=== PATIENT | male | born 1970 | race Caucasian/White ===

== ENCOUNTER → 2019-09-14 | Outpatient (CLI) | payer BC | LOC: COL.RAD 08:00 | DX: E04.2 Nontoxic multinodular goiter (principal) ==

== ENCOUNTER 2020-07-06 12:36 | Day surgery (SDC) | payer BC ==
[~2020-07-06] VITALS: Ht 180.3 cm; Wt 121.2 kg
[2020-07-06] VITALS (10 sets, daily range): BP systolic 127–156; BP diastolic 85–98; PULSE 58–75; TEMP 98.2
[~2020-07-06 12:36] MED LIST: CARDIZEM CD360 MG PO; CYMBALTA 60MG60 MG PO; LAMICTAL 25MG T25 MG PO; LIPITOR 40MG TA40 MG PO; LITHOBID 3300 MG/TAB PO
[2020-07-06] MEDS ORDERED: FERRO-TIME325 MG PO (13:08)
[2020-07-06] MEDS ORDERED: FOLIC ACID 11 MG/TA1 PO (13:08)
[2020-07-06] MEDS ORDERED: B-121000 MCG PO (13:08)
[2020-07-06] MEDS ORDERED: SYNTHROID0.2 MG/TAB PO (13:11)
[2020-07-06] MEDS ORDERED: MULTIPLE VITAMI1 TA5 PO (13:12)
[2020-07-06 13:42] LABS: HEMATOCRIT 44.2 % (42.0-52.0); HEMOGLOBIN 15.2 g/dl (13.5-18.0); MEAN CELL VOLUME 96 fl (80.0-100.0); MEAN CORPUSCULAR HEMOGLOBIN 33 pg (27.0-31.0); MEAN CORPUSCULAR HGB CONC 34 g/dl (33.0-37.0); MEAN PLATELET VOLUME 9.6 fl (7.4-10.4); PLATELET COUNT 292 K/mm3 (130-400); REDCELL DISTRIBUTION WIDTH-CV 13.3 % (11.5-14.5)
[2020-07-06 13:50] LABS: INR 0.9 (0.8-3.0); PROTHROMBIN TIME 10.4 SECONDS (9.7-12.8)
[2020-07-06 13:53] LABS: CALCIUM 10.5 mg/dL (8.4-10.2); CREATININE, serum 1.61 (0.66-1.25); PARTIAL THROMBOPLASTIN TIME 34.5 SECONDS (26.0-37.0); POTASSIUM 4.8 mmol/L (3.4-5.0)
--- NOTE | 2020-07-06 14:16 | NUR ---
SEE MERGE FOR ALL MEDICATION ADMINISTRATION TIMES AND INTRA AND POST SEDATION ASSESSMENTS
--- NOTE | 2020-07-06 18:00 | NUR ---
PT DID WELL DURING HIS RECOVERY, REMAINED IN SR/SB THROUGHOUT. TR BAND WAS DEFLATED WITH NO PROBLEM STARTING AT 1700, AND SITE WAS DRESSED WITH BANDAID, FOLDED 2X2 AND COBAN. CMS REMAINED INTACT DISTAL. PT HAS EATEN DINNER, AND HAS BEEN UP IN ROOM WITH STEADY GAIT. i REVIEWED DC AND FU INSTRUCTIONS WITH PT AND WHO DENIED ANY QUESTIONS. IV WAS DC'D WITH CATH INTACT. DRESSING APPLIED. TO EXIT VIA WHEELCHAIR.
== END 2020-07-06 20:51 | disposition home or self-care (01) ==
LOC: COL.CAR 12:36
PROVIDERS: Internal Medicine Interventional Cardiology
DX: I25.10 Atherosclerotic heart disease of native coronary artery without angina pectoris (principal); R94.39 Abnormal result of other cardiovascular function study; R06.02 Shortness of breath; I10 Essential (primary) hypertension; Z79.890 Hormone replacement therapy; Z20.822 Contact with and (suspected) exposure to COVID-19; Z79.899 Other long term (current) drug therapy; Z88.8 Allergy status to other drugs, medicaments and biological substances; Z88.6 Allergy status to analgesic agent
CPT/HCPCS: C1769; J1644; J2250; J3010

== ENCOUNTER 2020-07-26 15:30 | Outpatient (RCR) | payer BC ==
[~2020-07-26 15:30] MED LIST changes: +B-121000 MCG PO; +FERRO-TIME325 MG PO; +FOLIC ACID 11 MG/TA1 PO; +MULTIPLE VITAMI1 TA5 PO; +SYNTHROID0.2 MG/TAB PO
== END 2020-10-15 | disposition still patient (30) ==
LOC: WSST
DX: R49.8 Other voice and resonance disorders (principal); J38.3 Other diseases of vocal cords

== ENCOUNTER → 2020-08-22 | Outpatient (CLI) | payer BC | LOC: COL.RAD 13:12 | DX: R80.9 Proteinuria, unspecified (principal); R79.89 Other specified abnormal findings of blood chemistry ==